=== PATIENT | male | born 1950 | race Caucasian/White ===

== ENCOUNTER 2016-11-04 08:45 | Day surgery (SDC) | payer MEDICARE ==
[2016-11-04] MEDS ORDERED: PHENYLEPHRINE 2.5% OPHTH 2 ML DROPS ONE (08:51)
[2016-11-04] MEDS ORDERED: PHENYLEPHRINE 2.5% OPHTH 2 ML DROPS OPTH ONE (09:35)
[2016-11-04] MEDS ORDERED: PROPARACAINE 0.5% OPHTH DROPS 15 ML OPTH ONE ×2 (09:35→10:20)
[2016-11-04] MEDS ORDERED: KETOROLAC 0.45% OPHTH DROPS OPTH ONE (09:35)
[2016-11-04] MEDS ORDERED: CYCLOPENTOLATE 1% OPHTH DROPS 2 ML OPTH ONE (09:35)
[2016-11-04] MEDS ORDERED: LACTATED RINGERS 500 ML IV ONE (09:41)
[2016-11-04] MEDS ORDERED: BRIMONIDINE 0.2% OPHTH DROPS 5 ML OPTH ONE (10:19)
[2016-11-04] MEDS ORDERED: LIDOCAINE-MPF 2% 5 ML VIAL IM ONE (10:20)
[2016-11-04] MEDS ORDERED: EPINEPHrine 1 MG/ML AMP IVP ONE (10:20)
[2016-11-04] MEDS ORDERED: BSS/LIDOCAINE/EPINEPHRINE 1 ML SYRINGE IO ONE (10:20)
[2016-11-04] MEDS ORDERED: TRIAMCIN/MOXIFLOX/VANCO 1 ML VIAL IO ONE (10:20)
[2016-11-04] MEDS ORDERED: PROPOFOL 200 MG/20 ML VIAL IVP ONE (10:20)
[2016-11-04] MEDS ORDERED: CHONDR SULF/HYALURONATE SYRINGE IO ONE (10:20)
[2016-11-04] MEDS ORDERED: MIDAZOLAM 2 MG/2 ML VIAL IVP ONE (10:20)
[2016-11-04] MEDS ORDERED: TIMOLOL 0.5% OPHTH DROPS OPTH ONE (10:20)
== END 2016-11-04 08:46 | disposition home or self-care (01) ==
PROC: 08RJ3JZ Replacement of Right Lens with Synthetic Substitute, Percutaneous Approach (ICD-10-PCS; principal; 2016-11-04 10:00)
DX: H25.11 Age-related nuclear cataract, right eye (principal)
CPT/HCPCS: 66984; A9270; V2632

== ENCOUNTER 2016-11-11 10:05 | Day surgery (SDC) | payer MEDICARE ==
[~2016-11-11 10:05] MED LIST: PHENYLEPHRINE 2.5% OPHTH 2 ML DROPS ONE
[2016-11-11] MEDS ORDERED: LACTATED RINGERS 500 ML IV ONE (10:24)
[2016-11-11] MEDS ORDERED: PROPARACAINE 0.5% OPHTH DROPS 15 ML OPTH ONE ×2 (10:33→11:59)
[2016-11-11] MEDS ORDERED: CYCLOPENTOLATE 1% OPHTH DROPS 2 ML OPTH ONE (10:33)
[2016-11-11] MEDS ORDERED: KETOROLAC 0.45% OPHTH DROPS OPTH ONE (10:34)
[2016-11-11] MEDS ORDERED: PHENYLEPHRINE 2.5% OPHTH 2 ML DROPS OPTH ONE (10:34)
[2016-11-11] MEDS ORDERED: MIDAZOLAM 2 MG/2 ML VIAL IVP ONE (11:20)
[2016-11-11] MEDS ORDERED: BRIMONIDINE 0.2% OPHTH DROPS 5 ML OPTH ONE ×2 (11:59)
[2016-11-11] MEDS ORDERED: EPINEPHrine 1 MG/ML AMP IVP ONE (11:59)
[2016-11-11] MEDS ORDERED: BSS/LIDOCAINE/EPINEPHRINE 1 ML SYRINGE IO ONE ×2 (11:59)
[2016-11-11] MEDS ORDERED: CHONDR SULF/HYALURONATE SYRINGE IO ONE (11:59)
[2016-11-11] MEDS ORDERED: TRIAMCIN/MOXIFLOX/VANCO 1 ML VIAL IO ONE ×2 (12:00)
== END 2016-11-11 10:06 | disposition home or self-care (01) ==
PROC: 08RK3JZ Replacement of Left Lens with Synthetic Substitute, Percutaneous Approach (ICD-10-PCS; principal; 2016-11-11 11:30)
DX: H25.12 Age-related nuclear cataract, left eye (principal)
CPT/HCPCS: 66984; A9270; V2632

== ENCOUNTER 2018-08-22 09:36 | Outpatient (CLI) | payer MEDICARE ==
[2018-08-22 18:29] LABS: BUN - BLOOD UREA NITROGEN 10 mg/dL (6-20); CALCIUM 8.8 mg/dL (8.5-10.3); CARBON DIOXIDE - CO2 25 mmol/L (21-32); CHLORIDE 101 mmol/L (101-111); CHOLESTEROL 211 mg/dL; CREATININE 0.6 mg/dL (0.6-1.2); GFR - MDRD 134 (>89); GLUCOSE 91 mg/dL (70-100); HDL CHOLESTEROL 53 mg/dL; LDL CHOLESTEROL,CALCULATED 143 mg/dL; LDL/HDL RATIO 2.7 (<3.6); SODIUM 134 mmol/L (135-145); VLDL CHOLESTEROL 15 mg/dL
== END 2018-08-22 09:37 | disposition home or self-care (01) ==
LOC: LAB.F 09:36
PROVIDERS: ATTEND Internal Medicine
DX: Z00.00 Encounter for general adult medical examination without abnormal findings (principal); Z12.5 Encounter for screening for malignant neoplasm of prostate
CPT/HCPCS: 36415; 80048; 80061; G0103; 83721; 84153

== ENCOUNTER 2019-02-15 11:08 | Inpatient (IN) | payer MEDICARE, MEDICAID ==
[2019-02-15 11:40] LABS: BASOPHILS % (AUTO) 0.5 %; EOSINOPHILS # (AUTO) 0.1 10^3/uL (0.0-0.7); EOSINOPHILS % (AUTO) 0.7 %; HGB - HEMOGLOBIN 17.3 g/dL (14.0-18.0); LYMPHOCYTES # (AUTO) 2.1 10^3/uL (1.5-3.5); LYMPHOCYTES % (AUTO) 24.8 %; MEAN CORPUSCULAR HEMOGLOBIN 31.9 pg (27.0-31.0); MEAN CORPUSCULAR HGB CONC 34.8 g/dL (32.0-36.0); MEAN CORPUSCULAR VOLUME 91.5 fL (80.0-94.0); MEAN PLATELET VOLUME 9.7 fL (7.4-11.4); MONOCYTES # (AUTO) 0.8 10^3/uL (0.0-1.0); MONOCYTES % (AUTO) 9.8 %; NEUTROPHILS # (AUTO) 5.4 10^3/uL (1.5-6.6); NEUTROPHILS % (AUTO) 63.6 %; PLT - PLATELET COUNT 166 10^3/uL (130-450); RED BLOOD COUNT 5.43 10^6/uL (4.70-6.10); WHITE BLOOD COUNT 8.5 x10^3/uL (4.8-10.8)
[2019-02-15 11:52] LABS: MUDS CUTOFF CONCENTRATIONS CUTOFF CONC BELOW:
[2019-02-15 11:57] LABS: ACETAMINOPHEN < 10 ug/mL (10-30); ALBUMIN 4.6 g/dL (3.2-5.5); ALBUMIN/GLOBULIN RATIO 1.5 (1.0-2.2); ALKALINE PHOSPHATASE 51 IU/L (42-121); ALT ALANINE AMINOTRANSFERASE 23 IU/L (10-60); AST ASPARTATE AMINOTRANSFERASE 22 IU/L (10-42); BILIRUBIN,TOTAL 1.1 mg/dL (0.2-1.0); BUN - BLOOD UREA NITROGEN 10 mg/dL (6-20); CALCIUM 9.4 mg/dL (8.5-10.3); CARBON DIOXIDE - CO2 23 mmol/L (21-32); CHLORIDE 105 mmol/L (101-111); CREATININE 0.8 mg/dL (0.6-1.2); GFR - MDRD 96 (>89); GLUCOSE 105 mg/dL (70-100); LIPASE 34 U/L (22-51); SALICYLATE < 6.0 mg/dL; SODIUM 140 mmol/L (135-145); TOTAL PROTEIN 7.7 g/dL (6.7-8.2)
[2019-02-15 12:01] LABS: GLUCOSE, URINE (UA) NEGATIVE (NEGATIVE); KETONES,URINE (UA) 15 mg/dL (NEGATIVE); LEUKOCYTE ESTERASE, URINE NEGATIVE (NEGATIVE); NITRITE,URINE NEGATIVE (NEGATIVE); OCCULT BLOOD,URINE NEGATIVE (NEGATIVE); PH,URINE 5.5 PH (5.0-7.5); PROTEIN,URINE TRACE mg/dL (NEGATIVE); UROBILINOGEN,URINE 0.2 (NORMAL) E.U./dL (NORMAL)
[2019-02-15 12:09] LABS: CLARITY,URINE CLEAR (CLEAR)
[2019-02-15 12:10] LABS: BILIRUBIN,URINE NEGATIVE (NEGATIVE); ICTOTEST,URINE NEGATIVE
[2019-02-15 12:11] LABS: AMPHETAMINE SCREEN,URINE NEGATIVE (NEGATIVE); BENZODIAZEPINES SCREEN, URINE NEGATIVE (NEGATIVE); COCAINE SCREEN URINE NEGATIVE (NEGATIVE); METHADONE SCREEN, URINE NEGATIVE (NEGATIVE); METHAMPHETAMINES SCREEN, URINE NEGATIVE (NEGATIVE); OPIATE SCREEN, URINE NEGATIVE (NEGATIVE); OXYCODONE SCREEN, URINE NEGATIVE (NEGATIVE); PROPOXYPHENE SCREEN, URINE NEGATIVE (NEGATIVE); TRICYCLIC ANTIDEPRESSANT,URINE NEGATIVE (NEGATIVE)
--- NOTE | 2019-02-15 12:15 | ED Physician Documentation ---
History of Present Illness - Stated complaint Stated Complaint: DISORIENTED/CONFUSED - Chief complaint Chief Complaint: Neuro - History obtained from History obtained from: Patient - History of Present Illness Timing: How many days ago (2) Pain level max: 7 Pain level now: 7 Improved by: Nothing Worsened by: Nothing - Additonal information Additional information: sharp, R sided frontal headache 2 days ago. now having difficulty buttoning his clothes. No other focal neurological deficits. No history of headaches. Is not taking any medications at home. Review of Systems Ten Systems: 10 systems reviewed and negative Constitutional: denies: Fever, Chills Respiratory: denies: Cough GI: denies: Nausea, Vomiting, Diarrhea : denies: Dysuria Skin: denies: Rash Musculoskeletal: denies: Neck pain, Back pain Neurologic: denies: Focal weakness, Numbness, Confused PD PAST MEDICAL HISTORY - Past Medical History Cardiovascular: None Respiratory: None Endocrine/Autoimmune: None GI: None : None HEENT: Chronic vision loss, Chronic hearing loss Psych: None Musculoskeletal: Osteoarthritis Derm: None - Past Surgical History Past Surgical History: Yes Ortho: Other HEENT: Cataracts - Present Medications Home Medications: Ambulatory Orders Medication Instructions Recorded Confirmed No Known Home Medications 11/04/16 11/10/16 - Allergies Allergies/Adverse Reactions: Allergies Allergy/AdvReac Type Severity Reaction Status Date / Time No Known Drug Allergies Allergy Verified 02/15/19 11:21 - Social History Does the pt smoke?: No Smoking Status: Never smoker PD ED PE NORMAL - Vitals Vital signs reviewed: Yes - General General: Alert and oriented X 3, No acute distress, Well developed/nourished - HEENT HEENT: Atraumatic, PERRL, Ears normal, Moist mucous membranes - Neck Neck: Supple, no meningeal sign, No bony TTP - Cardiac Cardiac: RRR, Strong equal pulses - Respiratory Respiratory: No respiratory distress, Clear bilaterally - Abdomen Abdomen: Soft, Non tender, Non distended - Back Back: No spinal TTP - Derm Derm: Warm and dry - Extremities Extremities: Normal ROM s pain - Neuro Neuro: Alert and oriented X 3, emissions engineer 2-12 intact, No motor deficit, No sensory deficit, Normal speech, Other (Normal cerebellar test. Normal gait) Eye Opening: Spontaneous Motor: Obeys Commands Verbal: Oriented GCS Score: 15 - Psych Psych: Normal mood, Normal affect Results - Vitals Vitals: Vital Signs - 24 hr 02/15/19 02/15/19 11:15 17:25 Temperature 36.7 C Heart Rate 100 103 H Respiratory 16 17 Rate Blood Pressure 142/67 H 130/90 H O2 Saturation 99 98 Oxygen O2 Source Room air - EKG (time done) 1719 Rate: Rate (enter#) (99) Rhythm: Atrial fibrillation Milo: Normal QRS: Normal Ischemia: Normal ST segments - Labs Labs: Laboratory Tests 02/15/19 02/15/19 02/15/19 08:56 11:32 11:32 WBC 8.5 RBC 5.43 Hgb 17.3 Hct 49.7 MCV 91.5 MCH 31.9 H MCHC 34.8 RDW 13.0 Plt Count 166 MPV 9.7 Neut # (Auto) 5.4 Lymph # (Auto) 2.1 [place] # (Auto) 0.8 Eos # (Auto) 0.1 Baso # (Auto) 0.0 Absolute Nucleated RBC 0.00 Nucleated RBC % 0.0 Sodium 140 Potassium 3.8 Chloride 105 Carbon Dioxide 23 Anion Gap 12.0 BUN 10 Creatinine 0.8 Estimated GFR (MDRD) 96 Glucose 105 H Calcium 9.4 Total Bilirubin 1.1 H AST 22 ALT 23 Alkaline Phosphatase 51 Total Protein 7.7 Albumin 4.6 Globulin 3.1 Albumin/Globulin Ratio 1.5 Lipase 34 TSH 2.62 Urine Color Urine Clarity Urine pH Ur Specific [place] Urine Protein Urine Glucose (UA) Urine Ketones Urine Occult Blood Urine Nitrite Urine Bilirubin Urine Urobilinogen Ur Leukocyte Esterase Ur Microscopic Review Urine Culture Comments Salicylates < 6.0 Urine Opiates Screen Ur Oxycodone Screen Urine Methadone Screen Ur Propoxyphene Screen Acetaminophen < 10 L Ur Barbiturates Screen Ur Tricyclics Screen Ur Phencyclidine Scrn Ur Amphetamine Screen U Methamphetamines Scrn U Benzodiazepines Scrn Urine Cocaine Screen U Cannabinoids Screen Ethyl Alcohol < 5.0 02/15/19 11:45 WBC RBC Hgb Hct MCV MCH MCHC RDW Plt Count MPV Neut # (Auto) Lymph # (Auto) [place] # (Auto) Eos # (Auto) Baso # (Auto) Absolute Nucleated RBC Nucleated RBC % Sodium Potassium Chloride Carbon Dioxide Anion Gap BUN Creatinine Estimated GFR (MDRD) Glucose Calcium Total Bilirubin AST ALT Alkaline Phosphatase Total Protein Albumin Globulin Albumin/Globulin Ratio Lipase TSH Urine Color YELLOW Urine Clarity CLEAR Urine pH 5.5 Ur Specific [place] 1.025 Urine Protein TRACE Urine Glucose (UA) NEGATIVE Urine Ketones 15 H Urine Occult Blood NEGATIVE Urine Nitrite NEGATIVE Urine Bilirubin NEGATIVE Urine Urobilinogen 0.2 (NORMAL) Ur Leukocyte Esterase NEGATIVE Ur Microscopic Review NOT INDICATED Urine Culture Comments NOT INDICATED Salicylates Urine Opiates Screen NEGATIVE Ur Oxycodone Screen NEGATIVE Urine Methadone Screen NEGATIVE Ur Propoxyphene Screen NEGATIVE Acetaminophen Ur Barbiturates Screen NEGATIVE Ur Tricyclics Screen NEGATIVE Ur Phencyclidine Scrn NEGATIVE Ur Amphetamine Screen NEGATIVE U Methamphetamines Scrn NEGATIVE U Benzodiazepines Scrn NEGATIVE Urine Cocaine Screen NEGATIVE U Cannabinoids Screen NEGATIVE Ethyl Alcohol - Rads (name of study) Head CT Radiology: Prelim report reviewed, EMP read contemporaneously, See rad report (Suspect right frontal subdural hygroma as described. ) Brain MRI Radiology: Prelim report reviewed, EMP read contemporaneously, See rad report (Multiple cortical and subcortical diffusion restriction/acute infarcts in the right frontal, right parietal, right insular, right temporal and occipital lobes arranged in the right parasagittal orientation, raising suspicion for watershed type distribution infarcts. Abnormal attenuated cavernous and petrosal right ICA flow void, suggestive of hemodynamically significant proximal right ICA stenosis in the neck. Consider CT angiogram/MR angiogram of the head and neck to further evaluate. 3. No evidence for hemorrhage, midline shift or hydrocephalus. ) PD MEDICAL DECISION MAKING - ED course Complexity details: reviewed results, re-evaluated patient, considered differential, d/w patient, d/w family, d/w sustainable design consultant ED course: 68-year-old male presents to the emergency department with loss of fine motor skills with his hands. This started after a headache 2 days ago. He is now having difficulty buttoning his close. No focal neurological deficits on examination. Head CT is normal. Due to the continued loss of fine motor skills, an MRI was obtained, this shows multiple infarcts. Patient was given aspirin. EKG shows new onset atrial fibrillation. Discussed the case with Dr. Charles, hospitalist who accepts. This document was made in part using voice recognition software. While efforts are made to proofread this document, sound alike and grammatical errors may occur. Departure - Departure Disposition: 66 CAH DC/Xfer Clinical Impression: New onset a-fib Cerebrovascular accident (CVA) Qualifiers: CVA mechanism: embolism Precerebral and cerebral artery: unspecified cerebral artery Qualified Code(s): I63.40 - Cerebral infarction due to embolism of unspecified cerebral artery Condition: Stable NIHSS - Time Time: 11:30 - Level of Consciousness Level of consciousness: (0) Alert, Keenly responsive LOC Questions: (0) Answers both Q's correct LOC Commands: (0) Performs both correctly - Gaze Best Gaze: (0) Normal - Visual Visual: (0) No loss - Facial Palsy Facial Palsy: (0) Normal, symmetrical movement - Motor Arms (both separate) Motor Arm (right): (0) No drift Motor Arm (left): (0) No drift - Motor Legs (both separate) Motor Leg (right): (0) No drift Motor Leg (left): (0) No drift - Limb Ataxia Limb Ataxia: (0) Absent - Sensory Sensory: (0) Normal - Best Language Best Language: (0) No aphasia - Dysarthria Dysarthria: (0) Normal - Extinction and Inattention (formally neg Extinction and inattention: (0) No abnormality - Total Score/Results Total Score/Result: 0
--- NOTE | 2019-02-15 12:15 | CT Report ---
Reason: ALOC, HERRERA Procedure Date: 02/15/2019 Accession Number: [id number] / [id number] Procedure: CT - HEAD WO CPT Code: FULL RESULT: EXAM: CT HEAD EXAM DATE: 02/15/2019 12:02 PM. CLINICAL HISTORY: Headache and loss of consciousness. COMPARISON: None. TECHNIQUE: Multiaxial CT images were obtained from the foramen magnum to the vertex. Reformats: Sagittal and coronal. IV contrast: None. In accordance with CT protocol optimization, one or more of the following dose reduction techniques were utilized for this exam: automated exposure control, adjustment of mA and/or KV based on patient size, or use of iterative reconstructive technique. FINDINGS: Parenchyma: No intraparenchymal hemorrhage. No evidence of mass, midline shift. Otto-white differentiation is distinct. Extraaxial Spaces: Basal cisterns are preserved. There is likely a frontal right parafalcine isodense collection, given the appearance and location favor CSF density subdural hygroma, up To 1 cm thick with mild mass-effect on the right hemisphere but no significant midline shift. No hyperdense/hyperacute collection is detected. Ventricles: Ventricular configuration is generally preserved. Sinuses and Orbits: Imaged paranasal sinuses, orbits, and mastoids show no significant abnormality. Bones: No evidence of fracture or calvarial defect. Other: None. 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 RADIA
[2019-02-15] MEDS ORDERED: ASPIRIN CHEW 81 MG TABLET PO STA (16:40)
--- NOTE | 2019-02-15 17:10 | MRI Report ---
Reason: loss of fine motor skills Procedure Date: 02/15/2019 Accession Number: [id number] / [id number] Procedure: MRI - Brain W/O CPT Code: FULL RESULT: EXAM: MRI BRAIN WITHOUT CONTRAST EXAM DATE: 02/15/2019 04:55 PM. CLINICAL HISTORY: Loss of fine motor skills. COMPARISON: None. TECHNIQUE: Multiplanar, multisequence T1-weighted and fluid-sensitive MR sequences of the brain were performed. Sequences optimized for routine evaluation. Other: None. IV Contrast: None. FINDINGS: Multifocal cortical and subcortical diffusion restrictions in the right frontal, right parietal, right insular, right temporal and right occipital lobes in a linear parasagittal configuration, raising suspicion for watershed distribution infarction. These demonstrates T2 FLAIR hyperintensities and T1 hypointensity, suggestive of infarct at least 16 hours old. Asymmetrically diminished, narrowed flow related signal void of the cavernous and petrosal right ICA suggestive of more proximal hemodynamically significant right ICA stenosis. Multiple repeated axial T2 FLAIR sequences are moderately degraded by motion artifact. There is no midline shift or hemorrhage. There is mild diffuse cerebral volume loss. IMPRESSION: 1. Multiple cortical and subcortical diffusion restriction/acute infarcts in the right frontal, right parietal, right insular, right temporal and occipital lobes arranged in the right parasagittal orientation, raising suspicion for watershed type distribution infarcts. 2. Abnormal attenuated cavernous and petrosal right ICA flow void, suggestive of hemodynamically significant proximal right ICA stenosis in the neck. Consider CT angiogram/MR angiogram of the head and neck to further evaluate. 3. No evidence for hemorrhage, midline shift or hydrocephalus. RADIA The critical result notification system was initiated by Dr. Andre Steiner at 05:02 PM on 02/15/2019. The above critical result findings were discussed with Ivan Benoit by Dr. Andre Steiner at 05:04 PM on 02/15/2019.
[2019-02-15] MEDS ORDERED: SODIUM CHLORIDE FLUSH 0.9% 10 ML SYRINGE IVP PRN (17:27)
[2019-02-15] MEDS ORDERED: PROCHLORPERAZINE 10 MG/2 ML VIAL IVP PRN (17:27)
[2019-02-15] MEDS ORDERED: ACETAMINOPHEN 325 MG TABLET PO PRN (17:27)
[2019-02-15] MEDS ORDERED: ATORVASTATIN 40 MG TABLET PO STA (17:35)
[2019-02-15] MEDS ORDERED: HEPARIN 25000UNITS/500ML (D5W) 25,000 UNIT/500 ML BAG IV STA (18:34)
[2019-02-15 18:53] LABS: HGB - HEMOGLOBIN 16.3 g/dL (14.0-18.0); MEAN CORPUSCULAR HEMOGLOBIN 31.5 pg (27.0-31.0); MEAN CORPUSCULAR HGB CONC 34.4 g/dL (32.0-36.0); MEAN CORPUSCULAR VOLUME 91.7 fL (80.0-94.0); MEAN PLATELET VOLUME 10.2 fL (7.4-11.4); RED BLOOD COUNT 5.17 10^6/uL (4.70-6.10); RED CELL DISTRIBUTION WIDTH 12.7 % (12.0-15.0); WHITE BLOOD COUNT 8.4 x10^3/uL (4.8-10.8)
[2019-02-15] MEDS ORDERED: LORazepam 2 MG/ML VIAL IVP PRN (19:32)
--- NOTE | 2019-02-15 19:34 | HISTORY & PHYSICAL EXAMINATION ---
DATE OF SERVICE: 02/15/2019 Physician: Bernie Charles MD HISTORY OF PRESENT ILLNESS: This is a 68-year-old white male with apparently negative past medical history, he takes no medications. The patient came to the ER complaining of two days of having a right-sided headache and then today when he awoke, he "could not button his shirt" because his fingers were not responding. He presented to the emergency room and they started workup for a stroke. 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 An MRI of the brain was done, which shows multiple emboli in a watershed distribution; therefore, consistent with a shower of emboli and his resting EKG showed atrial fibrillation. The patient could not feel any palpitations, and has not had a prior cardiac history. PAST MEDICAL HISTORY: Negative. MEDICATIONS: No prescription medications, except a multivitamin daily ALLERGIES: NONE. SOCIAL HISTORY: No smoking. Four beers a day. No illicit drug use. 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 He lives with a female, his significant other but not . FAMILY HISTORY: Mother of ER REGISTRAR cancer, father of renal failure. a brother had a cardiac history and possibly a stroke, he never had children. REVIEW OF SYSTEMS: A comprehensive review of systems was performed and the pertinent positives are listed, the rest are negative. PHYSICAL EXAMINATION GENERAL: White male, who is in no distress. VITAL SIGNS: Blood pressure 138/93, pulse of 100-113, in atrial fibrillation, afebrile, room air saturation 98%. HEENT: Unremarkable. NECK: Without JVD or carotid bruits. CHEST: Clear. HEART: Irregular. No murmur. ABDOMEN: Soft, nontender. Normal bowel sounds. EXTREMITIES: No edema. NEUROLOGIC: Nonfocal. LABORATORY DATA: CMP unremarkable. TSH normal at 2.6. CBC unremarkable. Urinalysis normal. Toxicology negative. EKG: Atrial fibrillation, otherwise within normal limits, the rate is controlled in the 80s. There is no prior EKG for comparison. IMAGING: No chest x-ray was done. Head CT as described above. Brain MRI: Multiple cortical and subcortical diffusion restrictions consistent with acute infarcts in the right frontal, right parietal, right insular, right temporal and right occipital lobes, arranged in a parasagittal orientation, which is suspicious for watershed type distribution of infarct. Abnormal attenuation in the right ICA flow suggesting a hemodynamically significant proximal right ICA stenosis in the neck and recommendations are for CTA or MRA of the head and neck to evaluate vasculature. IMPRESSION/DIAGNOSES 1. Acute cerebrovascular accident. 2. Cerebral infarction, unilateral, acute. 3. New onset atrial fibrillation. 4. Peripheral vascular disease, (internal carotid artery). 5. Alcohol abuse. PLAN: Admit the patient to a telemetry bed, watch for rapid Afib. Begin IV heparin drip and then transitioned to Xarelto or Eliquis. Obtain an Echo to rule out an intracardiac clot, intra-cardiac shunt or cardiomyopathy. Obtain brain and neck angiography by magnetic resonance to detail the vascular stenoses, this will determine if there is need for transfer for carotid stenting. Check lipids. Start empirically four chewed aspirin, which was done in the ER, and then daily aspirin and start empiric high-dose statin using Lipitor 80 mg now and every evening. Evaluation with occupational therapy and physical therapy will be ordered, this will determine if he needs rehab at SNF. CIWA protocol and prn Ativan for any withdrawal symptoms. Thiamine empirically orally will be started. CODE STATUS: FULL CODE. DEEP VENOUS THROMBOSIS PROPHYLAXIS: Pharmacotherapy (IV Heparin drip). ATTESTATION: The patient is expected to be discharged or transferred to another facility within 96 hours: Yes. TD: 02/15/2019 18:50 AL
[2019-02-15] MEDS: FAMOTIDINE 20 MG TABLET PO SCH (21:26)
[2019-02-16] MEDS: SODIUM CHLORIDE FLUSH 0.9% 10 ML SYRINGE IVP SCH ×3 (00:19→18:21)
[2019-02-16 02:42] LABS: CHOL/HDL RATIO 3.5 (<5.0); CHOLESTEROL 160 mg/dL; HDL CHOLESTEROL 46 mg/dL; LDL CHOLESTEROL,CALCULATED 101 mg/dL; LDL/HDL RATIO 2.2 (<3.6); VLDL CHOLESTEROL 13 mg/dL
[2019-02-16] MEDS: FAMOTIDINE 20 MG TABLET PO SCH (08:19)
[2019-02-16] MEDS ORDERED: POLYETHYLENE GLYCOL 3350 17 GM PACKET PO SCH (09:00)
--- NOTE | 2019-02-16 09:29 | PROVIDER PROGRESS NOTE ---
Assessment/Plan - Problem List (1) Cerebrovascular accident (CVA) Qualifiers: CVA mechanism: embolism Precerebral and cerebral artery: unspecified cerebral artery Qualified Code(s): I63.40 - Cerebral infarction due to embolism of unspecified cerebral artery (4) Alcohol abuse Assessment/Plan: Tachycardia may be from withdrawl. Continue CIWA protocol and prn Ativan and beer for dinner was ordered. - Current Meds Current Meds: Current Medications Generic Name Dose Route Start Last Admin Trade Name Freq PRN Reason Stop Dose Admin Famotidine 20 mg 02/15/19 21:00 02/16/19 08:19 Pepcid PO 20 mg BID KIARA Administration Heparin Sodium/Dextrose 25,000 unit in 500 mls @ 20 mls/hr 02/15/19 18:34 02/15/19 20:08 IV 02/16/19 19:33 1,000 unit/hr TITR STA 20 mls/hr Administration Protocol 1,000 UNIT/HR Polyethylene Glycol 17 gm 02/16/19 09:00 02/16/19 08:19 Miralax PO 17 gm DAILY KIARA Administration Sodium Chloride 10 ml 02/16/19 01:00 02/16/19 08:19 Normal Saline Flush 0.9% IVP 10 ml 0100,0900,1700 KIARA Administration - Lab Result Fish Bone Diagrams: 02/16/19 09:00 02/15/19 11:32 - Additional Planning My Orders: My Active Orders 02/15/19 09:00 CBC W/O DIFF (HEMOGRAM) [HEME] DAILY 02/15/19 17:27 Activity Orders [RC] Q2HR IO [RC] IOSHIFT Initiate Bowel Care Protocol [RC] .protocol Initiate Personal Care Protoco [RC] .protocol Oxygen Therapy [RC] Routine Telemetry- [RC] Q4HR Vital Signs [RC] Q4H Acetaminophen [Tylenol] 650 mg PO Q4HR PRN Prochlorperazine Inj [Compazine Inj] 10 mg IVP Q6HR PRN Sodium Chloride Flush 0.9% [Normal Saline Flush 0.9%] 10 ml IVP PRN PRN Code Status [OTHERS] Routine Condition of Patient [OTHERS] Routine DVT Prophylaxis [OTHERS] Routine 02/15/19 17:31 Initiate Line Care Protocol [RC] QSHIFT Evaluate and Treat OT [OT] Routine Evaluate and Treat PT [PT] Routine 02/15/19 18:34 Heparin [id number]/[id number] (D5w) 25,000 unit in 500 ml IV TITR 02/15/19 18:36 Initiate Cardiac Heparin Prot [RC] .protocol 02/15/19 18:37 Notify Provider - Specific Ins [RC] PRN OCCULT BLOOD IN PAT. SINGLE [RAPID] Routine 02/15/19 19:32 CIWA - AR Score Card [RC] Q4H LORazepam INJ [Ativan Inj (Vial)] 0.5 mg IVP Q2H PRN 02/15/19 21:00 Famotidine [Pepcid] 20 mg PO BID 02/15/19 Dinner Cardiac Diet [DIET] 02/16/19 01:00 Sodium Chloride Flush 0.9% [Normal Saline Flush 0.9%] 10 ml IVP 0100,0900,1700 02/16/19 07:00 Echo Complete w/Bubble Study [ECHO] Stat 02/16/19 09:00 ANGIO NECK W [CT] Routine Polyethylene Glycol 3350 [Miralax] 17 gm PO DAILY 02/16/19 09:15 ANGIO HEAD W/WO [CT] Routine 02/16/19 09:30 Digoxin Inj [Lanoxin Inj] 250 mcg IVP DAILY 02/16/19 18:00 Beer 480 ml PO 1800 02/16/19 21:00 Atorvastatin [Lipitor] 80 mg PO QPM Objective Vital Signs: Vital Signs - 24 hr 02/15/19 02/15/19 02/15/19 11:15 17:25 18:34 Temperature 36.7 C 36.5 C Heart Rate 100 103 H Heart Rate [ 113 H Brachial] Heart Rate [ Monitoring electrodes] Respiratory 16 17 20 Rate Blood Pressure 142/67 H 130/90 H Blood Pressure [Left Brachial artery] Blood Pressure 138/93 H [Right Brachial artery] O2 Saturation 99 98 98 02/15/19 02/15/19 02/16/19 20:24 23:40 03:59 Temperature 36.6 C 36.6 C 36.4 C L Heart Rate Heart Rate [ 95 86 Brachial] Heart Rate [ 120 H Monitoring electrodes] Respiratory 16 18 16 Rate Blood Pressure Blood Pressure 103/73 117/80 [Left Brachial artery] Blood Pressure 122/79 [Right Brachial artery] O2 Saturation 97 96 100 02/16/19 02/16/19 04:36 08:12 Temperature 36.4 C L 36.5 C Heart Rate 86 Heart Rate [ Brachial] Heart Rate [ 130 H Monitoring electrodes] Respiratory 18 16 Rate Blood Pressure Blood Pressure 131/78 H [Left Brachial artery] Blood Pressure [Right Brachial artery] O2 Saturation 94 99 Oxygen O2 Source Room air I&O (Last 24 Hrs): Intake and Output Totals x24h 02/14/19 02/15/19 02/16/19 23:59 23:59 23:59 Intake Total 100 320 Output Total 300 Balance 100 20 - Results Results: Laboratory Results WBC 8.4 x10^3/uL (4.8-10.8) 02/15/19 17:42 RBC 5.17 10^6/uL (4.70-6.10) 02/15/19 17:42 Hgb 16.3 g/dL (14.0-18.0) 02/15/19 17:42 Hct 47.4 % (42.0-52.0) 02/15/19 17:42 MCV 91.7 fL (80.0-94.0) 02/15/19 17:42 MCH 31.5 pg (27.0-31.0) H 02/15/19 17:42 MCHC 34.4 g/dL (32.0-36.0) 02/15/19 17:42 RDW 12.7 % (12.0-15.0) 02/15/19 17:42 Plt Count 155 10^3/uL (130-450) 02/15/19 17:42 MPV 10.2 fL (7.4-11.4) 02/15/19 17:42 Neut # (Auto) 5.4 10^3/uL (1.5-6.6) 02/15/19 11:32 Lymph # (Auto) 2.1 10^3/uL (1.5-3.5) 02/15/19 11:32 [place] # (Auto) 0.8 10^3/uL (0.0-1.0) 02/15/19 11:32 Eos # (Auto) 0.1 10^3/uL (0.0-0.7) 02/15/19 11:32 Baso # (Auto) 0.0 10^3/uL (0.0-0.1) 02/15/19 11:32 Absolute Nucleated RBC 0.00 x10^3/uL 02/15/19 11:32 Nucleated RBC % 0.0 /100WBC 02/15/19 11:32 Whole Blood INR 1.1 (0.8-1.2) 02/15/19 19:45 Anti-Xa Level 0.4 U/mL (-0.7) 02/16/19 08:10 Sodium 140 mmol/L (135-145) 02/15/19 11:32 Potassium 3.8 mmol/L (3.5-5.0) 02/15/19 11:32 Chloride 105 mmol/L (101-111) 02/15/19 11:32 Carbon Dioxide 23 mmol/L (21-32) 02/15/19 11:32 Anion Gap 12.0 (6-13) 02/15/19 11:32 BUN 10 mg/dL (6-20) 02/15/19 11:32 Creatinine 0.8 mg/dL (0.6-1.2) 02/15/19 11:32 Estimated GFR (MDRD) 96 (>89) 02/15/19 11:32 Glucose 105 mg/dL (70-100) H 02/15/19 11:32 Calcium 9.4 mg/dL (8.5-10.3) 02/15/19 11:32 Total Bilirubin 1.1 mg/dL (0.2-1.0) H 02/15/19 11:32 AST 22 IU/L (10-42) 02/15/19 11:32 ALT 23 IU/L (10-60) 02/15/19 11:32 Alkaline Phosphatase 51 IU/L (42-121) 02/15/19 11:32 Troponin I High Sens 8.9 pg/mL (2.3-19.7) 02/15/19 11:32 Total Protein 7.7 g/dL (6.7-8.2) 02/15/19 11:32 Albumin 4.6 g/dL (3.2-5.5) 02/15/19 11:32 Globulin 3.1 g/dL (2.1-4.2) 02/15/19 11:32 Albumin/Globulin Ratio 1.5 (1.0-2.2) 02/15/19 11:32 Triglycerides 64 mg/dL (-149) 02/16/19 02:15 Cholesterol 160 mg/dL (-199) 02/16/19 02:15 LDL Cholesterol, Calc 101 mg/dL (-129) 02/16/19 02:15 VLDL Cholesterol 13 mg/dL 02/16/19 02:15 HDL Cholesterol 46 mg/dL (60-) L 02/16/19 02:15 LDL/HDL Ratio 2.2 (<3.6) 02/16/19 02:15 Cholesterol/HDL Ratio 3.5 (<5.0) 02/16/19 02:15 Lipase 34 U/L (22-51) 02/15/19 11:32 TSH 2.62 uIU/mL (0.34-5.60) 02/15/19 08:56 Urine Color YELLOW 02/15/19 11:45 Urine Clarity CLEAR (CLEAR) 02/15/19 11:45 Urine pH 5.5 PH (5.0-7.5) 02/15/19 11:45 Ur Specific [place] 1.025 (1.002-1.030) 02/15/19 11:45 Urine Protein TRACE mg/dL (NEGATIVE) 02/15/19 11:45 Urine Glucose (UA) NEGATIVE mg/dL (NEGATIVE) 02/15/19 11:45 Urine Ketones 15 mg/dL (NEGATIVE) H 02/15/19 11:45 Urine Occult Blood NEGATIVE (NEGATIVE) 02/15/19 11:45 Urine Nitrite NEGATIVE (NEGATIVE) 02/15/19 11:45 Urine Bilirubin NEGATIVE (NEGATIVE) 02/15/19 11:45 Urine Urobilinogen 0.2 (NORMAL) E.U./dL (NORMAL) 02/15/19 11:45 Ur Leukocyte Esterase NEGATIVE (NEGATIVE) 02/15/19 11:45 Ur Microscopic Review NOT INDICATED 02/15/19 11:45 Urine Culture Comments NOT INDICATED 02/15/19 11:45 Salicylates < 6.0 mg/dL 02/15/19 11:32 Urine Opiates Screen NEGATIVE (NEGATIVE) 02/15/19 11:45 Ur Oxycodone Screen NEGATIVE (NEGATIVE) 02/15/19 11:45 Urine Methadone Screen NEGATIVE (NEGATIVE) 02/15/19 11:45 Ur Propoxyphene Screen NEGATIVE (NEGATIVE) 02/15/19 11:45 Acetaminophen < 10 ug/mL (10-30) L 02/15/19 11:32 Ur Barbiturates Screen NEGATIVE (NEGATIVE) 02/15/19 11:45 Ur Tricyclics Screen NEGATIVE (NEGATIVE) 02/15/19 11:45 Ur Phencyclidine Scrn NEGATIVE (NEGATIVE) 02/15/19 11:45 Ur Amphetamine Screen NEGATIVE (NEGATIVE) 02/15/19 11:45 U Methamphetamines Scrn NEGATIVE (NEGATIVE) 02/15/19 11:45 U Benzodiazepines Scrn NEGATIVE (NEGATIVE) 02/15/19 11:45 Urine Cocaine Screen NEGATIVE (NEGATIVE) 02/15/19 11:45 U Cannabinoids Screen NEGATIVE (NEGATIVE) 02/15/19 11:45 Ethyl Alcohol < 5.0 mg/dL 02/15/19 11:32 - Procedures Procedures: Procedures REPLACEMENT OF LEFT LENS WITH SYNTH SUB, PERC APPROACH (11/11/16) REPLACEMENT OF RIGHT LENS WITH SYNTH SUB, PERC APPROACH (11/04/16)
[2019-02-16] MEDS ORDERED: DIGOXIN 500 MCG/2 ML AMP IVP SCH (09:30)
[2019-02-16] MEDS ORDERED: IOVERSOL 320 100 ML VIAL IVP ONE ×3 (09:52→13:10)
--- NOTE | 2019-02-16 13:08 | CT Report ---
Reason: Acute CVA Procedure Date: 02/16/2019 Accession Number: [id number] / [id number] Procedure: CT - ANGIO NECK W CPT Code: FULL RESULT: CT ANGIOGRAM NECK INDICATION: 68-year-old male with right MCA infarctions. CT angiography has been requested in further evaluation. TECHNIQUE: 80 mL of Optiray 320 contrast were injected at a rapid rate through a large bore, right antecubital intravenous catheter. The neck was scanned helically and data was reconstructed into 0.5 mm axial images. In addition, MIP reconstructions have been generated in multiple projections to allow better assessment of the extracranial carotid and vertebral arteries. Significant arterial stenoses will be assessed using NASCET type measurements when possible. In accordance with CT protocol optimization, one or more of the following dose reduction techniques were utilized for this exam: automated exposure control, adjustment of mA and/or KV based on patient size, or use of iterative reconstructive technique. COMPARISON: None. FINDINGS: There is normal branching of the aortic arch. Atherosclerotic disease is identified in the arch. There is calcified plaque at the origin of the left subclavian artery without associated stenosis. The first order, supra-aortic arteries appear widely patent. Right carotid artery: There is complex, partially calcified atherosclerotic plaque in the carotid bulb that gives rise to very severe stenosis in the mid to distal bulb. At level of maximal narrowing the lumen is reduced to a tiny pinhole, measuring 1 mm or less. More distally, the ICA measures about 3.2 mm diameter. However, this almost certainly represents vascular remodeling due to reduced pressure head, secondary to severe stenosis in the bulb. The bulb stenosis appears to represent 80% or greater diameter narrowing. The ICA is patent to the skull base. Left carotid artery: Widely throughout. Right vertebral artery: The lumen appears to be reduced to about 2.2 mm at the origin. More distally, the artery measures about 3.4 mm. This suggests a 40% stenosis. The actual degree of narrowing may be less. There is considerable beam-chi artifact from dense contrast in adjacent venous structures that limits assessment in the proximal V1 segment. There is mild narrowing in the V2 segment at the C5-C6 disk level due to mass effect by a large right-sided uncovertebral osteophyte. The V2 segment is otherwise unremarkable. The V3 segment is widely patent throughout. Left vertebral artery: There is minor plaque at the origin with minimal associated narrowing. The V1 segment is otherwise unremarkable. The V2 and V3 segments appear widely patent throughout. Motion artifact significantly limits evaluation of the intracranial arterial circulations, especially just above the [place]. The intracranial right ICA is small but patent. There appears to be filling of the main branches of the right MCA. The A1 segments of the anterior cerebral arteries are patent with good filling of both proximal A2 branches. The left ICA and the main branches of the left MCA appear robust. The vertebral arteries, left PICA, basilar artery, superior cerebellar arteries and main branches of the posterior cerebral arteries appear widely patent. There are patent posterior communicating arteries. No definite right PICA is identified. The right PICA territory is probably supplied by the ipsilateral AICA or contralateral PICA (normal anatomical variants). IMPRESSION: 1. There is complex, partially calcified atherosclerotic plaque giving rise to severe eccentric stenosis in the right carotid bulb. This probably represents at least 80% NASCET type stenosis. It is difficult to obtain accurate NASCET type measurements given that the stenosis appears to be resulting in decreased pressure head in the extracranial right ICA with associated vascular remodeling. The extracranial ICA measures just over 3 mm diameter, compared to over 5 mm for contralateral ICA. 2. There is no evidence of dissection or significant stenosis in the left carotid artery or either vertebral artery. 3. Evaluation of the intracranial arterial circulation is limited on the imaging provided. However, the extracranial right ICA does appear to be patent throughout. There is filling of the main branches of the right MCA. The call report notification system was initiated by Dr. Timi Oneal at 01:04 PM on 02/16/2019. The above call report findings were discussed with Dr. aron Charles by Dr. Timi Oneal at 01:06 PM on 02/16/2019.
[2019-02-16] MEDS ORDERED: ASPIRIN EC 81 MG TABLET PO SCH (13:13)
[2019-02-16 15:29] LABS: HGB - HEMOGLOBIN 16.3 g/dL (14.0-18.0); MEAN CORPUSCULAR HEMOGLOBIN 31.3 pg (27.0-31.0); MEAN CORPUSCULAR HGB CONC 33.1 g/dL (32.0-36.0); MEAN CORPUSCULAR VOLUME 94.4 fL (80.0-94.0); MEAN PLATELET VOLUME 10.7 fL (7.4-11.4); RED BLOOD COUNT 5.21 10^6/uL (4.70-6.10); RED CELL DISTRIBUTION WIDTH 13.1 % (12.0-15.0); WHITE BLOOD COUNT 8.3 x10^3/uL (4.8-10.8)
[2019-02-16] MEDS ORDERED: METOPROLOL SUCCINATE 25 MG TABLET PO SCH (15:49)
--- NOTE | 2019-02-16 16:21 | Discharge Plan ---
Discharge Plan Problem Reviewed?: Yes Disposition: 02 Transfer Acute Care Hosp Condition: Serious No Smoking: If you smoke, Please STOP! Call for help. Follow-up with: Zaire Figueroa MD [Primary Care Provider] -
[2019-02-16] MEDS ORDERED: BEER 355 ML BOTTLE PO SCH (18:00)
[2019-02-16] MEDS ORDERED: BEER 480 ML CAN PO SCH (18:00)
[2019-02-16 18:48] VITALS: BP 142/88
[2019-02-16] MEDS ORDERED: ATORVASTATIN 40 MG TABLET PO SCH (21:00)
--- NOTE | 2019-02-17 06:48 | CT Report ---
Reason: Acute CVA Procedure Date: 02/16/2019 Accession Number: [id number] / [id number] Procedure: CT - ANGIO HEAD W/WO CPT Code: FULL RESULT: EXAM: CT ANGIOGRAM HEAD. EXAM DATE: 02/16/2019 10:58 AM CLINICAL HISTORY: Right MCA infarcts. COMPARISON: NECK ANGIO 02/16/2019 10:02 AM BRAIN W/O 02/15/2019 4:07 PM. TECHNIQUE: - CT Angiogram: Using a multidetector scanner, high-resolution axial images were acquired from the skull base through vertex following rapid infusion of intravenous contrast. Reformats: Multiplanar MIP reformats were reconstructed. Nascet criteria used for stenosis measurement. IV Contrast: OPTI 320 80ML. In accordance with CT protocol optimization, one or more of the following dose reduction techniques were utilized for this exam: automated exposure control, adjustment of mA and/or KV based on patient size, or use of iterative reconstructive technique. FINDINGS: Right ICA below the skull base is diminished in caliber and is not opacified as densely as the left consistent with severe downstream stenosis as seen on the neck examination. Right M1 is widely patent. And 2 branches are severely degraded by motion. Right A1 and A2 vessels proximally appear patent. There is a small patent anterior communicating artery. Left ICA, left M1 and proximal M2 branches appear patent, more distally there is severe degradation by motion. Proximal left ACAs patent. Vertebral arteries are patent bilaterally. Basilar artery and both posterior cerebral arteries appear patent. Imaged dural venous sinuses are patent. IMPRESSION: CTA Head: 1. Diminished caliber of the right ICA consistent with severe downstream stenosis. Please see CT angiogram neck report from the same date. 2. The study at the level of the sylvian fissures is severely degraded by motion. No occlusive thrombus identified in the right M1. M2 branches are poorly demonstrated. RADIA
[2019-02-17] MEDS ORDERED: DIGOXIN 125 MCG TABLET PO SCH (09:00)
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
== END 2019-02-16 19:20 | disposition short-term general hospital (02) | DRG 65 ==
LOC: ED 11:08 → MS2 17:59
PROVIDERS: ADMIT Internal Medicine; ATTEND Internal Medicine
DX: I63.40 Cerebral infarction due to embolism of unspecified cerebral artery (principal); I63.411 Cerebral infarction due to embolism of right middle cerebral artery; R41.89 Other symptoms and signs involving cognitive functions and awareness; R29.700 NIHSS score 0; G96.0 Cerebrospinal fluid leak; I48.91 Unspecified atrial fibrillation; F10.10 Alcohol abuse, uncomplicated; R20.0 Anesthesia of skin; R27.8 Other lack of coordination; R29.810 Facial weakness; R53.1 Weakness; I65.21 Occlusion and stenosis of right carotid artery; I08.1 Rheumatic disorders of both mitral and tricuspid valves
CPT/HCPCS: 36415; 70450; 70496; 70498; 70551; 80053; 80061; 81003; 83690; 84443; 84484; 85025; 85027; 85520; 85610; 93005; 93306; 97110; 97161; 97166; 99284; 99285; A9270; Q9967; 80306; 80307; 80320; 80329; 81001; 82272; 83721; 87086

== ENCOUNTER 2020-06-30 07:59 | Outpatient (CLI) | payer MEDICARE, MEDICAID ==
[2020-06-30 15:00] LABS: ALBUMIN 4.3 g/dL (3.2-5.5); ALBUMIN/GLOBULIN RATIO 1.4 (1.0-2.2); BILIRUBIN,TOTAL 1.1 mg/dL (0.2-1.0); CALCIUM 8.9 mg/dL (8.5-10.3); CREATININE 0.7 mg/dL (0.6-1.2); TOTAL PROTEIN 7.3 g/dL (6.7-8.2)
[2020-06-30 15:03] LABS: BASOPHILS # (AUTO) 0.1 10^3/uL (0.0-0.1); BASOPHILS % (AUTO) 0.7 %; EOSINOPHILS # (AUTO) 0.1 10^3/uL (0.0-0.7); EOSINOPHILS % (AUTO) 1.8 %; HGB - HEMOGLOBIN 15.7 g/dL (14.0-18.0); LYMPHOCYTES # (AUTO) 2.4 10^3/uL (1.5-3.5); LYMPHOCYTES % (AUTO) 33.4 %; MEAN CORPUSCULAR HEMOGLOBIN 30.3 pg (27.0-31.0); MEAN CORPUSCULAR VOLUME 91.9 fL (80.0-94.0); MEAN PLATELET VOLUME 10.7 fL (7.4-11.4); MONOCYTES # (AUTO) 0.7 10^3/uL (0.0-1.0); MONOCYTES % (AUTO) 9.3 %; NEUTROPHILS # (AUTO) 3.9 10^3/uL (1.5-6.6); NEUTROPHILS % (AUTO) 54.5 %; PLT - PLATELET COUNT 253 10^3/uL (130-450); RED BLOOD COUNT 5.18 10^6/uL (4.70-6.10); RED CELL DISTRIBUTION WIDTH 12.8 % (12.0-15.0); WHITE BLOOD COUNT 7.2 x10^3/uL (4.8-10.8)
== END 2020-06-30 08:00 | disposition home or self-care (01) ==
LOC: LAB.S 07:59
PROVIDERS: ATTEND Internal Medicine
DX: I10 Essential (primary) hypertension (principal)
CPT/HCPCS: 36415; 80053; 84153; 85025

== ENCOUNTER 2020-07-07 11:42 | Outpatient (CLI) | payer MEDICARE, MEDICAID ==
--- NOTE | 2020-07-07 12:26 | XRAY Report ---
PROCEDURE: Lumbar Spine 2 View INDICATIONS: LOWER BACK PAIN TECHNIQUE: 3 views of the lumbar spine were acquired. COMPARISON: None. FINDINGS: Bones: 5 [id number] vertebrae are present. There is grade 1 anterolisthesis of L3 on L4. Degen erative endplate changes and bilateral facet arthrosis at L2-3 to L5-S1 levels are seen.. No vertebr al body compression fractures. No suspicious bony lesions. Soft tissues: Overlying bowel gas pattern is normal. No suspicious soft tissue calcifications. IMPRESSION: Degenerative disc disease throughout lumbar spine with grade 1 anterolisthesis of L3 on L4. No acute compression fracture. Reviewed by: Amol Moser MD on 07/07/2020 12:24 PM PST Approved by: Amol Moser MD on 07/07/2020 12:24 PM PST Station ID: [id number]
== END 2020-07-07 11:43 | disposition home or self-care (01) ==
LOC: DI.S 11:42
PROVIDERS: ATTEND Internal Medicine
DX: M43.16 Spondylolisthesis, lumbar region (principal); M51.36 Other intervertebral disc degeneration, lumbar region

== ENCOUNTER 2020-07-26 07:09 | Outpatient (CLI) | payer MEDICARE, MEDICAID ==
--- NOTE | 2020-07-28 08:31 | MRI Report ---
PROCEDURE: Lumbar Spine W/O INDICATIONS: RT LUMBAR RADICULOPATHY, LOW BACK PAIN TECHNIQUE: Noncontrast sagittal T1 spin echo and T2 fast echo, sagittal STIR, axial T1 and T2 fast spin echo thr ough the lumbar spine. In cases with scoliosis, additional coronal T2 fast spin echo may be performe d. COMPARISON: None. FINDINGS: Image quality: Excellent. Alignment and Curvature: Degenerative anterolisthesis of L3 on L4 measuring 4 mm. Otherwise normal al ignment. Vertebral body height maintained. Bone Marrow: No suspicious focal marrow signal abnormality. Discogenic marrow signal changes at the o pposing endplates from L3 L4 through L5 S1. Periarticular bone marrow edema and soft tissue edema in association with facet arthropathy at both L4-L5 and L5-S1. Spinal Cord: Conus medullaris terminates at the normal level. Visualized cord demonstrates normal s ignal and size. Paraspinous Soft Tissues: No paravertebral masses. T12-L1: No spinal canal or neural foraminal stenosis. L1-L2: Disc bulge flattening the ventral thecal sac without significant mass effect upon the trave rsing L2 nerve roots. Foraminal components of the disc bulge and facet hypertrophy contribute to mild left greater than right neural foraminal stenosis. L2-L3: Disc bulge and a superimposed broad-based posterior disc protrusion flatten and indent the ventral thecal sac. There is mass effect upon the traversing L3 nerve roots bilaterally within both s ubarticular zones. There is overall mild spinal canal stenosis. Foraminal components of the disc bulg e and facet hypertrophy combine to produce mild bilateral neural foraminal stenosis. L3-L4: Moderate to severe final canal stenosis due to a combination of diffuse disc bulge, superimp osed broad-based posterior disc protrusion, buckling of the ligamentum flavum, and facet hypertrophy. CSF at this level within the thecal sac is almost entirely effaced and there is crowding of the rodney ersing nerve roots. Foraminal components of the disc bulge and facet hypertrophy contribute to mild-m oderate neural foraminal stenosis bilaterally. L4-L5: Diffuse disc bulge and a superimposed broad-based posterior disc protrusion flattening the v entral thecal sac with mild mass effect upon the traversing L5 nerve roots within both subarticular z ones. Foraminal components of the disc bulge contribute to moderate bilateral neural foraminal stenos is in conjunction with facet hypertrophy. Periarticular marrow and soft tissue edema are present nicole g with bilateral facet effusions. L5-S1: Diffuse disc bulge and a superimposed broad-based posterior disc protrusion, most pronounced in the right subarticular zone where there is displacement of the right S1 nerve roots by disc mater ial (series 701 image 9). Foraminal components of this bulge contribute to moderate bilateral neural foraminal stenosis. IMPRESSION: Multilevel multifactorial degenerative changes worst from L3-L4 through L5-S1. Potential areas of foc al nerve root impingement as described above. Please correlate for any corresponding radicular sympto ms. Reviewed by: Gerald Gonzales MD on 07/28/2020 8:29 AM PST Approved by: Gerald Gonzales MD on 07/28/2020 8:29 AM PST Station ID: [id number]
== END 2020-07-26 07:10 | disposition home or self-care (01) ==
LOC: DI 07:09
PROVIDERS: ATTEND Internal Medicine
DX: M51.26 Other intervertebral disc displacement, lumbar region (principal); M47.816 Spondylosis without myelopathy or radiculopathy, lumbar region; M48.061 Spinal stenosis, lumbar region without neurogenic claudication; M51.27 Other intervertebral disc displacement, lumbosacral region; M48.07 Spinal stenosis, lumbosacral region

== ENCOUNTER 2021-03-13 09:27 | Outpatient (CLI) | payer MEDICARE, MEDICAID ==
[2021-03-13 14:51] LABS: BASOPHILS # (AUTO) 0.1 10^3/uL (0.0-0.1); BASOPHILS % (AUTO) 0.7 %; EOSINOPHILS # (AUTO) 0.1 10^3/uL (0.0-0.7); EOSINOPHILS % (AUTO) 1.2 %; HCT - HEMATOCRIT 47.5 % (42.0-52.0); HGB - HEMOGLOBIN 15.6 g/dL (14.0-18.0); LYMPHOCYTES # (AUTO) 2.7 10^3/uL (1.5-3.5); LYMPHOCYTES % (AUTO) 36.4 %; MEAN CORPUSCULAR HEMOGLOBIN 30.2 pg (27.0-31.0); MEAN CORPUSCULAR HGB CONC 32.8 g/dL (32.0-36.0); MEAN CORPUSCULAR VOLUME 91.9 fL (80.0-94.0); MONOCYTES # (AUTO) 0.6 10^3/uL (0.0-1.0); MONOCYTES % (AUTO) 7.9 %; NEUTROPHILS % (AUTO) 53.3 %; PLT - PLATELET COUNT 264 10^3/uL (130-450); RED BLOOD COUNT 5.17 10^6/uL (4.70-6.10); WHITE BLOOD COUNT 7.5 x10^3/uL (4.8-10.8)
[2021-03-13 15:38] LABS: ALBUMIN 4.3 g/dL (3.2-5.5); ALBUMIN/GLOBULIN RATIO 1.5 (1.0-2.2); ALKALINE PHOSPHATASE 84 IU/L (42-121); ALT ALANINE AMINOTRANSFERASE 33 IU/L (10-60); AST ASPARTATE AMINOTRANSFERASE 22 IU/L (10-42); BILIRUBIN,TOTAL 1.1 mg/dL (0.2-1.0); BUN - BLOOD UREA NITROGEN 10 mg/dL (6-20); CALCIUM 8.9 mg/dL (8.5-10.3); CARBON DIOXIDE - CO2 24 mmol/L (21-32); CHLORIDE 103 mmol/L (101-111); CHOL/HDL RATIO 5.7 (<5.0); CHOLESTEROL 228 mg/dL; CREATININE 0.8 mg/dL (0.6-1.2); GFR - MDRD 95 (>89); GLUCOSE 97 mg/dL (70-100); HDL CHOLESTEROL 40 mg/dL; LDL CHOLESTEROL,CALCULATED 165 mg/dL; LDL/HDL RATIO 4.1 (<3.6); POTASSIUM 4.1 mmol/L (3.5-5.0); SODIUM 137 mmol/L (135-145); TOTAL PROTEIN 7.2 g/dL (6.7-8.2); TRIGLYCERIDES 114 mg/dL; VLDL CHOLESTEROL 23 mg/dL
== END 2021-03-13 09:28 | disposition home or self-care (01) ==
LOC: LAB.S 09:27
PROVIDERS: ATTEND Internal Medicine
DX: I10 Essential (primary) hypertension (principal); E78.5 Hyperlipidemia, unspecified
CPT/HCPCS: 36415; 80053; 80061; 83721; 85025

== ENCOUNTER 2021-06-19 11:46 | Day surgery (SDC) | payer MEDICARE, MEDICAID ==
[2021-06-19] MEDS ORDERED: PROPOFOL 500 MG/50 ML 500 MG/50 ML VIAL ONE (11:56)
[2021-06-19] MEDS ORDERED: PROPOFOL 200 MG/20 ML VIAL IVP ONE (12:08)
[2021-06-19] MEDS ORDERED: LACTATED RINGERS 1,000 ML IV ONE (12:17)
[2021-06-19] MEDS ORDERED: MIDAZOLAM 2 MG/2 ML VIAL ONE (12:32)
--- NOTE | 2021-06-19 12:36 | ANESTHESIA ---
Pre-Anesthesia VS, & Labs - Diagnosis screening - Procedure colonoscopy Vital Signs: Temp Pulse Resp BP Pulse Ox 36.3 C L 100 22 134/93 H 98 06/19/21 12:11 06/19/21 12:11 06/19/21 12:11 06/19/21 12:11 06/19/21 12:11 Height: 5 ft 10 in Weight (kg): 86 kg Body Mass Index: 27.1 BMI Classification: Overweight - NPO >8 hours - Lab Results Lab results reviewed: Yes Home Medications and Allergies Home Medications: Ambulatory Orders Apixaban [Eliquis] 5 mg PO BID 06/11/21 Metoprolol Tartrate [Lopressor] 25 mg PO BID 06/11/21 Rosuvastatin Calcium [Crestor] 10 mg PO DAILY 06/11/21 Apixaban [Eliquis] 5 mg PO BID 06/11/21 Metoprolol Tartrate [Lopressor] 25 mg PO BID 06/11/21 Rosuvastatin Calcium [Crestor] 10 mg PO DAILY 06/11/21 Allergies/Adverse Reactions: Allergies Allergy/AdvReac Type Severity Reaction Status Date / Time No Known Drug Allergies Allergy Verified 02/15/19 11:21 Anes History & Medical History - Anesthetic History Anesthesia Complications: reports: No previous complications Family history of Anesthesia Complications: Denies Family history of Malignant Hyperthermia: Denies - Medical History Cardiovascular: reports: High cholesterol, Atrial fibrillation Pulmonary: reports: None Gastrointestinal: reports: None Urinary: reports: None Neuro: reports: CVA (no residual weakness at L), Other Musculoskeletal: reports: Osteoarthritis Endocrine/Autoimmune: reports: None Skin: reports: None Smoking Status: Former smoker - Surgical History Eyes Ears Nose Throat (EENT): reports: Cataracts Orthopedic: reports: Other Exam General: Alert, Oriented x3, Cooperative Dental: Poor dentition Mouth Opening: Greater than 4 Fingerbreadths Mallampati classification: I Thyromental Distance: 4-6 cm Respiratory: Lungs clear, Normal breath sounds, No respiratory distress Cardiovascular: Other (AF) Neurological: Normal speech Mental/Cognitive Status: Alert/Oriented X3, Normal for patient Cognitive Status: Within normal limits Plan Anesthesia Type: Total IV Consent for Procedure(s) Verified and Reviewed: Yes Code Status: Attempt Resuscitation ASA classification: 3-Severe systemic disease Is this case an emergency?: No
[2021-06-19] MEDS ORDERED: PHENYLEPHRINE 10 MG/ML VIAL ONE (13:04)
[2021-06-19] MEDS ORDERED: LACTATED RINGERS 100 ML IV ONE (13:43)
[2021-06-19 14:11] VITALS: BP 104/78
--- NOTE | 2021-06-19 16:07 | ANESTHESIA POST OP EVALUATION ---
Anesthesia Post Eval - Post Anesthesia Eval Vitals: Last Vital Signs Temp 36.2 C L 06/19/21 14:11 Pulse 96 06/19/21 14:11 Resp 23 06/19/21 14:11 BP 104/78 06/19/21 14:11 Pulse Ox 97 06/19/21 14:11 CV Function Including HR & BP: Stable Pain Control: Satisfactory Nausea & Vomiting: Negative Mental Status: Baseline Respiratory Status: Airway Patent Hydration Status: Satisfactory Anesthesia Complications: None
== END 2021-06-19 11:47 | disposition home or self-care (01) ==
LOC: SDS 11:46
PROVIDERS: ATTEND Surgery
PROC: 0DBK8ZX Excision of Ascending Colon, Via Natural or Artificial Opening Endoscopic, Diagnostic (ICD-10-PCS; principal; 2021-06-19 13:00)
DX: Z12.11 Encounter for screening for malignant neoplasm of colon (principal); D12.2 Benign neoplasm of ascending colon; K57.30 Diverticulosis of large intestine without perforation or abscess without bleeding; I10 Essential (primary) hypertension; I48.0 Paroxysmal atrial fibrillation; E78.00 Pure hypercholesterolemia, unspecified; Z79.01 Long term (current) use of anticoagulants; Z79.899 Other long term (current) drug therapy; Z80.0 Family history of malignant neoplasm of digestive organs; Z86.73 Personal history of transient ischemic attack (TIA), and cerebral infarction without residual deficits; Z87.891 Personal history of nicotine dependence
CPT/HCPCS: 45385; J7120

== ENCOUNTER 2021-09-08 08:19 | Outpatient (CLI) | payer MEDICARE, MEDICAID ==
[2021-09-08 14:28] LABS: BASOPHILS # (AUTO) 0.1 10^3/uL (0.0-0.1); BASOPHILS % (AUTO) 0.7 %; EOSINOPHILS # (AUTO) 0.1 10^3/uL (0.0-0.7); EOSINOPHILS % (AUTO) 1.8 %; HCT - HEMATOCRIT 46.2 % (42.0-52.0); HGB - HEMOGLOBIN 15.4 g/dL (14.0-18.0); LYMPHOCYTES # (AUTO) 2.4 10^3/uL (1.5-3.5); LYMPHOCYTES % (AUTO) 31.2 %; MEAN CORPUSCULAR HEMOGLOBIN 30.3 pg (27.0-31.0); MEAN CORPUSCULAR HGB CONC 33.3 g/dL (32.0-36.0); MEAN CORPUSCULAR VOLUME 90.8 fL (80.0-94.0); MEAN PLATELET VOLUME 10.9 fL (7.4-11.4); MONOCYTES # (AUTO) 0.6 10^3/uL (0.0-1.0); MONOCYTES % (AUTO) 7.7 %; NEUTROPHILS # (AUTO) 4.5 10^3/uL (1.5-6.6); NEUTROPHILS % (AUTO) 58.2 %; PLT - PLATELET COUNT 251 10^3/uL (130-450); RED BLOOD COUNT 5.09 10^6/uL (4.70-6.10); RED CELL DISTRIBUTION WIDTH 13.5 % (12.0-15.0); WHITE BLOOD COUNT 7.6 x10^3/uL (4.8-10.8)
[2021-09-08 14:53] LABS: ALBUMIN 4.4 g/dL (3.2-5.5); ALBUMIN/GLOBULIN RATIO 1.7 (1.0-2.2); ALKALINE PHOSPHATASE 65 IU/L (42-121); ALT ALANINE AMINOTRANSFERASE 34 IU/L (10-60); AST ASPARTATE AMINOTRANSFERASE 31 IU/L (10-42); BILIRUBIN,TOTAL 0.8 mg/dL (0.2-1.0); BUN - BLOOD UREA NITROGEN 9 mg/dL (6-20); CALCIUM 8.9 mg/dL (8.5-10.3); CARBON DIOXIDE - CO2 27 mmol/L (21-32); CHLORIDE 102 mmol/L (101-111); CHOL/HDL RATIO 3.2 (<5.0); CHOLESTEROL 146 mg/dL; CREATININE 0.9 mg/dL (0.6-1.2); GFR - MDRD 83 (>89); GLUCOSE 94 mg/dL (70-100); HDL CHOLESTEROL 45 mg/dL; LDL CHOLESTEROL,CALCULATED 82 mg/dL; LDL/HDL RATIO 1.8 (<3.6); POTASSIUM 3.9 mmol/L (3.5-5.0); SODIUM 138 mmol/L (135-145); TRIGLYCERIDES 95 mg/dL; VLDL CHOLESTEROL 19 mg/dL
== END 2021-09-08 08:20 | disposition home or self-care (01) ==
LOC: LAB.S 08:19
PROVIDERS: ATTEND Internal Medicine
DX: I10 Essential (primary) hypertension (principal); E78.5 Hyperlipidemia, unspecified; Z12.5 Encounter for screening for malignant neoplasm of prostate
CPT/HCPCS: 36415; 80053; 80061; 85025; G0103; 83721; 84153

== ENCOUNTER 2022-11-30 16:07 | Outpatient (CLI) | payer MEDICARE, MEDICAID ==
--- NOTE | 2022-12-01 00:05 | Ultrasound Report ---
PROCEDURE: Ext Limited Non Vascular INDICATIONS: LEFT ARM MASS TECHNIQUE: Real-time scanning was performed of the left shoulder, with image documentation. COMPARISON: None. FINDINGS: There is a very circumscribed, uniformly hyperechoic ovoid mass measuring 3.7 x 1.0 x 4.0 cm oriented parallel to the skin surface in the subcutaneous layer. There is no infiltration into the muscle however there is slight mass effect on the underlying muscle. Color Doppler imaging demonstra aliza no vascularity. IMPRESSION: 1. Discrete 4 cm subcutaneous, avascular lipoma corresponding to the palpable left upper arm mass. Reviewed by: Sarah Farris MD on 11/30/2022 11:04 PM TREVON Approved by: Sarah Farris MD on 11/30/2022 11:04 PM TREVON Station ID: [id number]
== END 2022-11-30 16:08 | disposition home or self-care (01) ==
LOC: DI 16:07
PROVIDERS: ATTEND Nurse Practitioner
DX: D17.22 Benign lipomatous neoplasm of skin and subcutaneous tissue of left arm (principal)

== ENCOUNTER 2023-01-26 12:36 | Outpatient (CLI) | payer MEDICARE, MEDICAID ==
[2023-01-26 15:04] LABS: BASOPHILS # (AUTO) 0.1 10^3/uL (0.0-0.1); BASOPHILS % (AUTO) 0.6 %; EOSINOPHILS # (AUTO) 0.1 10^3/uL (0.0-0.7); EOSINOPHILS % (AUTO) 1.4 %; HCT - HEMATOCRIT 44.7 % (42.0-52.0); HGB - HEMOGLOBIN 14.7 g/dL (14.0-18.0); LYMPHOCYTES # (AUTO) 2.7 10^3/uL (1.5-3.5); LYMPHOCYTES % (AUTO) 33.9 %; MEAN CORPUSCULAR HGB CONC 32.9 g/dL (32.0-36.0); MEAN CORPUSCULAR VOLUME 91.2 fL (80.0-94.0); MEAN PLATELET VOLUME 11.5 fL (7.4-11.4); MONOCYTES # (AUTO) 0.7 10^3/uL (0.0-1.0); MONOCYTES % (AUTO) 8.4 %; NEUTROPHILS # (AUTO) 4.3 10^3/uL (1.5-6.6); NEUTROPHILS % (AUTO) 55.3 %; PLT - PLATELET COUNT 228 10^3/uL (130-450); RED CELL DISTRIBUTION WIDTH 13.5 % (12.0-15.0); WHITE BLOOD COUNT 7.8 x10^3/uL (4.8-10.8)
[2023-01-26 15:16] LABS: ALBUMIN 4.5 g/dL (3.2-5.5); ALBUMIN/GLOBULIN RATIO 1.7 (1.0-2.2); ALKALINE PHOSPHATASE 64 IU/L (42-121); ALT ALANINE AMINOTRANSFERASE 40 IU/L (10-60); AST ASPARTATE AMINOTRANSFERASE 31 IU/L (10-42); BILIRUBIN,TOTAL 0.6 mg/dL (0.2-1.0); BUN - BLOOD UREA NITROGEN 10 mg/dL (6-20); CALCIUM 9.5 mg/dL (8.5-10.3); CARBON DIOXIDE - CO2 27 mmol/L (21-32); CHLORIDE 106 mmol/L (101-111); CHOL/HDL RATIO 2.6 (<5.0); CHOLESTEROL 102 mg/dL; CREATININE 0.7 mg/dL (0.6-1.3); GFR - MDRD 110 (>89); GLUCOSE 91 mg/dL (74-104); HDL CHOLESTEROL 39 mg/dL; LDL CHOLESTEROL,CALCULATED 40 mg/dL; POTASSIUM 3.9 mmol/L (3.5-4.5); SODIUM 139 mmol/L (135-145); TOTAL PROTEIN 7.2 g/dL (6.4-8.9); TRIGLYCERIDES 117 mg/dL (48-352); VLDL CHOLESTEROL 23 mg/dL
== END 2023-01-26 12:37 | disposition home or self-care (01) ==
LOC: LAB.S 12:36
PROVIDERS: ATTEND Registered Nurse
DX: E78.5 Hyperlipidemia, unspecified (principal); Z79.899 Other long term (current) drug therapy
CPT/HCPCS: 36415; 80053; 80061; 83721; 85025